=== PATIENT | female | born 1960 | race Asian ===

== ENCOUNTER → 2017-12-23 18:25 | Outpatient (REF) | payer OTHER, SELFPAY | LOC: LAB 18:25 | PROVIDERS: PCP Internal Medicine; Visit Provider Physician Assistant | DX: L65.9 Nonscarring hair loss, unspecified (principal); L30.4 Erythema intertrigo; L82.1 Other seborrheic keratosis; L85.1 Acquired keratosis [keratoderma] palmaris et plantaris; L20.84 Intrinsic (allergic) eczema; T14.8XXA Other injury of unspecified body region, initial encounter | CPT/HCPCS: 87070; 87075; 87205 ==